=== PATIENT | female | born 1975 | race Caucasian/White ===

== ENCOUNTER 2019-02-06 09:53 | Day surgery (SDC) | payer BC ==
[~2019-02-06] VITALS: Ht 157.5 cm; Wt 87.2 kg
[2019-02-06 10:18] VITALS: BP 121/76; PULSE 77; TEMP 97.8
[2019-02-06] MEDS ORDERED: SYNTHROID0.05 MG/TA PO (10:56)
[2019-02-06] MEDS ORDERED: PROTONIX 40MG T40 MG PO (10:56)
[2019-02-06 14:16] VITALS: BP 114/71; PULSE 82; TEMP 97.2
--- NOTE | 2019-02-06 14:16 | NUR ---
Patient brought back to [facility]. Eyes closed, responds to verbal stimuli, oriented. Denies any pain or nausea. Vital signs stable. Fiance at bedside. States she does not want anything to drink or eat at this time. Call bryson within reach will continue to monitor.
--- NOTE | 2019-02-06 14:30 | NUR ---
Patient states she needs to use restroom. Brought via wheelchair d/t nausea. Dry heaving small amounts of sputum. Zofran given per MD orders. Will monitor.
[2019-02-06 14:31] VITALS: BP 107/70; PULSE 73
[2019-02-06 14:46] VITALS: BP 102/73; PULSE 75
--- NOTE | 2019-02-06 14:46 | NUR ---
Patient reports improvement in nausea. Sipping on sprite, tolerating well. Vital signs stable. Will conitnue to monitor.
[2019-02-06 15:01] VITALS: BP 104/75; PULSE 67
[2019-02-06 16:36] VITALS: BP 99/62; PULSE 72
--- NOTE | 2019-02-06 16:36 | NUR ---
Patient states nausea has improved and she is ready to go home. Patient to get dressed at this time.
--- NOTE | 2019-02-06 16:40 | NUR ---
Discharge instructions reviewed with patient and fiance. All questions answered. IV removed per orders.
--- NOTE | 2019-02-06 16:55 | NUR ---
Patient brought down to lobby via wheel chair. Fiance to drive home.
== END 2019-02-06 16:55 | disposition home or self-care (01) ==
LOC: SDCO 09:53
DX: M20.22 Hallux rigidus, left foot (principal); M20.21 Hallux rigidus, right foot; M21.612 Bunion of left foot; M21.611 Bunion of right foot; K21.9 Gastro-esophageal reflux disease without esophagitis; G89.29 Other chronic pain; M54.9 Dorsalgia, unspecified; Z83.3 Family history of diabetes mellitus; Z82.49 Family history of ischemic heart disease and other diseases of the circulatory system
CPT/HCPCS: J0690; J2250; J2405; J2704; J3010; J7120

== ENCOUNTER → 2022-01-26 | Outpatient (CLI) | payer BC ==
[~2022-01-26] MED LIST: PROTONIX 40MG T40 MG PO; SYNTHROID0.05 MG/TA PO
== END ==
LOC: MC.RAD 01-18 09:30
DX: Z12.31 Encounter for screening mammogram for malignant neoplasm of breast (principal)

== ENCOUNTER → 2024-05-17 | Outpatient (CLI) | payer BC ==
[~2024-05-17] MED LIST changes: +ASPIRIN 32325 MG/TAB PO; +CELEBREX 200MG200 MG PO; +NORCO 325 MG-7.1 TAB PO; +ROXICODONE 55 MG/TAB PO; +TYLENOL 500MG500 MG PO
== END ==
LOC: MC.RAD 10:16
DX: Z12.31 Encounter for screening mammogram for malignant neoplasm of breast (principal)